=== PATIENT | female | born 1990 | race African-American/Black ===

== ENCOUNTER 2021-11-13 08:42 | Emergency (ER) | payer MEDICAID, OTHER ==
[~2021-11-13] VITALS: Ht 157.5 cm; Wt 61.2 kg
[2021-11-13 08:54] VITALS: BP 153/107
--- NOTE | 2021-11-13 09:03 | NUR ---
TO ER BED 1. PT W/ C/O TOOTHACHE SINCE YESTERDAY, PAIN RATED 10/10. PT A/O X4, AMBULATORY.
[2021-11-13] MEDS ORDERED: KETOROLAC TROMETHAMINE 15 MG/ML VIAL ONE (09:26)
[2021-11-13] MEDS ORDERED: KETOROLAC TROMETHAMINE INJ 30 MG/ML VIAL IM ONE (09:30)
[2021-11-13] MEDS ORDERED: PENI500T PO (09:30)
[2021-11-13] MEDS ORDERED: IBUP-1955 PO (09:30)
--- NOTE | 2021-11-13 09:40 | NUR ---
TORADOL 15MG IM GIVEN ON R DELTOID
== END 2021-11-13 10:02 | disposition home or self-care (01) ==
LOC: ER 08:46
DX: K04.7 Periapical abscess without sinus (principal); K03.2 Erosion of teeth; K02.9 Dental caries, unspecified; J45.909 Unspecified asthma, uncomplicated
CPT/HCPCS: 96372; 99283; J1885